=== PATIENT | female | born 1935 | race Caucasian/White ===

== ENCOUNTER 2016-12-26 02:47 | Inpatient (IN) | payer OTHER ==
[~2016-12-26] VITALS: Ht 167.6 cm; Wt 67.1 kg
[~2016-12-26 02:47] MED LIST: CALTRATE 600 +1 EACH PO; DAILY VALUE1 EACH PO; LIPITOR10 M1 PO
[2016-12-26] MEDS ORDERED: COLACE100 M1 PO (09:03)
[2016-12-26] MEDS ORDERED: ELIQUIS2.5 M1 PO (09:03)
[2016-12-26] MEDS ORDERED: MIRALAX17 G1 PO (09:03)
[2016-12-26] MEDS ORDERED: DILAUDID2 M1 PO (09:03)
--- NOTE | 2016-12-26 09:24 | Patient Discharge Instructions ---
Discharge Instructions General Discharge Information You were seen/treated for: Left hip pain secondary to osteoarthritis You had these procedures: Left total hip replacement Watch for these problems: Increasing pain, redness, warmth, swelling. Drainage of any type from incision. Inability to bear weight on right leg. Fever greater than 101.5. Do not soak the wound: Yes No bath, but you may shower: Yes Other wound care: Keep wound clean and dry Special Instructions: activity : Weightbearing as tolerated. No restrictions. Incision site: Keep incision clean and dry clean and dry. Okay to shower. No bathing or soaking. Do not apply any ointments of any type to the postop site. Continue DVT prophylaxis [Eliquis 2.5 mg by mouth 1 tablet twice a day for 3 weeks] Continue bowel regimen as instructed to avoid constipation due to narcotics. Follow-up in 6 weeks for the postop follow-up visit with Dr. Wahl Call office if you develop temperature greater than 101.5, excessive drainage from incision site, or increase in pain which is uncontrolled by pain medication. Diet Continue normal diet: Yes Recommended Diet: Regular Activity Full Activity/No Limits: No Activity Self Limited: Yes Pounds, do NOT lift more than: 10 (until follow up visit.) Activity Limited to: Weight bear as tolerated (in the L eft leg) Acute Coronary Syndrome Inclusion Criteria At DC or during hospital stay patient has or had the following: ACS DIAGNOSIS No Discharge Core Measures Meds if any: Prescribed or Continued at Discharge Meds if any: NOT Prescribed or Continued at Discharge Congestive Heart Failure Inclusion Criteria At DC or during hospital stay patient has or had the following: CHF DIAGNOSIS No Discharge Core Measures Meds if any: Prescribed or Continued at Discharge Meds if any: NOT Prescribed or Continued at Discharge Cerebrovascular accident Inclusion Criteria At DC or during hospital stay patient has or had the following: CVA/TIA Diagnosis No Discharge Core Measures Meds if any: Prescribed or Continued at Discharge Meds if any: NOT Prescribed or Continued at Discharge Venous thromboembolism Inclusion Criteria VTE Diagnosis No VTE Type NONE VTE Confirmed by (Test) NONE Discharge Core Measures - Per Current guidelines, there needs to be overlap - treatment for the first 5 days of Warfarin therapy. - If discharged on Warfarin prior to 5 days of - overlap therapy, the patient will need to be - assessed for post discharge needs including - *Post discharge parental anticoagulation - *Warfarin and/or parental anticoagulation education - *Follow up date to check INR post discharge At least 5 days overlap therapy as Inpatient No Meds if any: Prescribed or Continued at Discharge Note: Overlap Therapy is Warfarin and Anticoagulant Meds if any: NOT Prescribed or Continued at Discharge Meds if any: NOT Prescribed or Continued at Discharge
--- NOTE | 2016-12-26 09:33 | Surgical Discharge Summary ---
Visit Information Visit Dates Admission Date: 12/26/16 Discharge Date: 12/28/16 History of Present Illness Chief Complaint: Left hip pain secondary to osteoarthritis Surgical History Pertinent Surgical History: non-contributory Review of Systems: See H&P Hospital Course Course Attending Physician: REANNA KELLY MD Primary Care Physician: OLMAN ALEXANDRE,[facility] Hospital Course: Admitted to hospital on 12/26/2016 for the postoperative care after the elective procedure, left total hip replacement. She tolerated the procedure well and was transferred to general surgical floor. Her diet was advanced and tolerated. Her vital signs were stable and within normal limits. She voided spontaneously. Her pain is adequately well controlled with oral pain meds. During the Hosptial Course she was seen by physical therapy and deemed appropriate for discharge home with VNA and PT services. Allergies: Coded Allergies: oxycodone (NAUSEA/VOMITTING 12/26/16) PATIENT STATES N/V FROM [facility] Disposition Summary Disposition Principal Diagnosis: Unilateral primary osteoarthritis-left hip Additional Diagnosis: None Discharge Disposition: home health services Discharge Instructions General Discharge Information Code Status: Full Code Patient's Diet: Regular diet Patient's Activity: Weight-bearing as tolerated. Follow-Up Instructions/Appts: Follow up in [address] Kelly for possible postop follow-up visit. Medications at Discharge Discharge Medications: Continue taking these medications: Atorvastatin Calcium (Lipitor) 10 MG TABLET 1 Tablet ORAL DAILY Comments: Last Taken: 12/27/16 Time: 4:30 PM Multivitamin (Daily Value) 1 EACH TABLET 1 Tablet ORAL DAILY Comments: NOT GIVEN IN HOSPITAL Calcium Carbonate/Vitamin D3 (Caltrate 600 + D Tablet) 600 MG-800 TABLET 1 Tablet ORAL TWICE DAILY Comments: NOT GIVEN IN HOSPTIAL Start taking the following new medications: Apixaban (Eliquis) 2.5 MG TABLET 1 Tablet ORAL TWICE DAILY Days = 21 No Refills Comments: Last Taken: 12/28/16 Time: 8:30 AM Hydromorphone HCl (Dilaudid) 2 MG TABLET 1-2 Tablet ORAL EVERY 4-6 HOURS as needed for PAIN Qty = 36 No Refills Comments: Last Taken: 12/28/16 Time: 11:15 AM Docusate Sodium (Colace) 100 MG CAPSULE 1 Capsule ORAL TWICE DAILY Qty = 14 No Refills Instructions: DISCONTNIUE IF YOU DEVLOP DIARRHEA Comments: Last Taken: 12/28/16 Time: 8:30 AM Polyethylene Glycol 3350 (Miralax) 17 GRAM POWD.PACK 1 Packet ORAL DAILY Qty = 7 No Refills Instructions: dissolve in water DISCONTINUE IF YOU DEVELOP DIARRHEA Comments: Last Taken: 12/28/16 Time: 8:30 AM
--- NOTE | 2016-12-26 09:37 | Admission Core Measures ---
Admission Meds I reviewed the following Meds: Current Medications Sig/Vijaya Start time Last Medication Dose Stop Time Status Admin Acetaminophen 975 MG ONCE 12/26 0000 NR (Tylenol) 12/26 2358 Atorvastatin Calcium 10 MG 12/26 AC (Lipitor) Cefazolin Sodium 2,000 MG ONCE 12/26 0000 NR (Kefzol-Ancef Inj) 12/26 2358 Oxycodone HCl 10 MG ONCE 12/26 NR (Roxicodone) 12/26 2358 Patient Medication 1 UNIT 1700 12/26 1699 AC Teaching 12/26 1700 (STATIN EDUCATION) Acute Coronary Syndrome Inclusion Criteria ACS Diagnosis No Inpatient Core Measures LDL Reminder: If No, please order W/I first 24hr of stay Congestive Heart Failure Inclusion Criteria CHF Diagnosis No Cerebrovascular accident Inclusion Criteria CVA/TIA Diagnosis No Inpatient Core Measures Bedside Swallow Eval Reminder: If BSE failed, place ST order Antithrombotic Reminder: Order Antithrombotic Medication by end of day 2 Antithrombotic Reminder: Document Reason Antithrombotic Not ordered by end of day 2 AFIB/Flutter Reminder: If Present, add to problem list AFIB/Flutter Reminder: Order Anticoag Medication for pts with AFIB/Flutter Atherosclerosis Reminder: If Present, add to problem list LDL Reminder: If No, please order W/I first 24hr of stay PT Order Reminder: If No, please order Venous thromboembolism Inpatient Core Measures VTE Risk Factors: Age > 40, [facility] prophylaxis d/t No contraindications No VTE Pharm Prophylaxis d/t No contraindications Inclusion Criteria - Per Current guidelines, there needs to be overlap - treatment for the first 5 days of Warfarin therapy. - Parenteral Anticoagulation (IV or SC) needs to be - given along with Warfarin therapy. VTE Diagnosis No VTE Type NONE VTE Confirmed by (Test) NONE Problem List As ranked by this Provider includes Assessment & Plan 1. Unilateral primary osteoarthritis, left hip HOME MEDS Home Med List Apixaban (Eliquis) 2.5 MG TABLET 1 TAB PO BID ANTICOAGULATION Atorvastatin Calcium (Lipitor) 10 MG TABLET 1 TAB PO DAILY CHOL (Reported) Calcium Carbonate/Vitamin D3 (Caltrate 600 + D Tablet) 600 MG-800 TABLET 1 TAB PO BID SUPP (Reported) Docusate Sodium (Colace) 100 MG CAPSULE 1 CAP PO BID CONSTIPATION Hydromorphone HCl (Dilaudid) 2 MG TABLET 1-2 TAB PO Q4-6 PRN PAIN Multivitamin (Daily Value) 1 EACH TABLET 1 TAB PO DAILY SUPP (Reported) Polyethylene Glycol 3350 (Miralax) 17 GRAM POWD.PACK 1 PAC PO DAILY CONSTIPATION
--- NOTE | 2016-12-26 11:19 | RADIOLOGY REPORT ---
EXAMINATION: XR HIP, LEFT CLINICAL INFORMATION: Postoperative examination. COMPARISON: No relevant prior imaging is available. TECHNIQUE: Two views of the left hip. FINDINGS: There are recent postoperative changes of a total left hip arthroplasty. There is no dislocation. No evidence of periprosthetic fracture. Soft tissue gas adjacent to the prosthesis is consistent with recent surgery. Stool is visualized within the distal colon. IMPRESSION: Expected postoperative changes of a total left hip arthroplasty. No dislocation.
--- NOTE | 2016-12-26 12:46 | PN- Orthopedic ---
Subjective Subjective: The patient was seen this afternoon postoperatively. She reports her pain is under adequate control and has no other complaints at the current time. Objective Vital Signs and I&Os Vital signs: Blood pressure 128/58, pulse 70, temperature 97.5, O2 sat dry she 94% on room air I's and O's: 2100 ML's in of lactated ringer/270 ML's out of urine via Rabago catheter/EBL 150 Physical Exam: Gen.: Alert and in no obvious distress Skin: Warm and dry Cardiac: S1-S2 regular Pulmonary: Bilateral breath sounds are equal with good exchange Extremities: Bilateral lower extremities are warm without calf tenderness or significant edema. Gross motor and sensory are intact. Left hip surgical dressing is clean, dry, and intact. Assessment/Plan Assessment/Plan Assessment: 81-year-old female status post left total hip arthroplasty. Postoperatively the patient is progressing as expected and her pain is under adequate control. Plan: Out of bed with physical therapy patient is weightbearing as tolerated GI and DVT prophylaxis with Eliquis 2.5mg po bid, Alps and teds Continue current pain regiment Monitor for postoperative void Follow-up morning laboratory studies Restart home medications Incentive spirometry Core Measures/Miscellaneous Venous Thromboembolism VTE Risk Factors: Age > 40, Surgery VTE Contraindications: No Contraindications VTE Diagnosis: No VTE Type: NONE VTE Confirmed by (Test): NONE Beta Burak Is Beta Burak a Home Med? No Antibiotics Is Patient on Antibiotics? Yes If Yes: prophylaxis
[2016-12-26 14:26] VITALS: BP 104/62
--- NOTE | 2016-12-26 14:53 | Operative Report ---
Operative/Inv Procedure Report Surgery Date: 12/26/16 Name of Procedure: Left total hip replacement Pre-Operative Diagnosis: Primary left hip DJD Post-Operative Diagnosis: Same Estimated Blood Loss: 250 Surgeon/Ethanol Maintenance Mechanic: LETICIA ALEXANDRE,REANNA Bedolla Anesthesia: block Operative/Procedure Note Note: Description of Procedure: The patient was taken to the operating room and positively identified. After induction of spinal anesthesia and administration of appropriate pre-operative antibiotics, the patient was positioned supine on the operating room table and all bony prominences were well padded. After performing a surgical timeout, the left lower extremity was prepped and draped in the usual sterile fashion. A direct anterior approach was made to the left hip. The incision was carried sharply through superficial soft tissues to the level of the fascia. Meticulous hemostasis was maintained with Bovie electocautery. The fascia over the tensor fascia ritika muscle was opened sharply and the interval between the TFL and the sartorius was entered bluntly taking care to stay lateral to the lateral femoral cutaneous nerve. Retractors were placed around the femoral neck and the pericapsular fat was identified. The ascending branches of the lateral femoral circumflex vessels were identified and carefully coagulated. The pericapsular fat and anterior capsule were then resected. A napkin ring osteotomy was performed and the femoral head was removed without difficulty. Attention was then turned to the acetabulum. After appropriate placement of retractors, the acetabulum was exposed. Soft tissue was cleaned from the acetabular margin and notch. Overhanging osteophytes were removed and the teardrop was exposed. The acetabulum was then sequentially reamed to accept a 58 mm Coyote Tritanium hemispherical solid back shell. This was impacted into place in the appropriate position and fitted with a 36 mm Trident X3 zero degree polyethylene insert. Attention was then turned to the femur. After performing the appropriate ligament releases, the proximal femur was exposed. It was then sequentially broached to accept a size 7 Coyote Omnifit EARLENE cemented stem. This was trialed for leg length and stability. The trial component was removed and the canal was prepared for cementation. The stem was cemented and held in place until the cement fully cured. The trunnion was carefully cleaned and fit with a 36 mm, +0 Biolox delta ceramic femoral head. The hip was reduced and put through a full range of motion and found to be stable. The articular space was then irrigated with sterile saline. The periarticular soft tissues were infilitrated with Marcaine. The fascial layer was closed with interrupted #1 vicryl suture and the skin was re-approximated with interrupted 2 -0 vicryl. The skin was closed with a running 3-0 V-Lock suture. Steri-strips and a sterile dressing were applied. The patient was awakened and taken to the recovery room in satisfactory condition.
[2016-12-26 16:00] VITALS: BP 118/60
[2016-12-26 18:00] VITALS: BP 124/62
[2016-12-26 20:56] VITALS: BP 122/70
[2016-12-26 22:12] VITALS: BP 120/74
[2016-12-27 05:42] VITALS: BP 122/60
[2016-12-27 07:00] VITALS: BP 122/64
--- NOTE | 2016-12-27 07:55 | PN- Orthopedic ---
Subjective Subjective: NAEO. Patient without new complaints of. Pain well-controlled. Tolerating diet without nausea vomiting. No flatus but no bowel movement. Has been out of bed with PT. Denies chest pain or shortness of breath. Objective Vital Signs and I&Os Vital Signs Date Time Temp Pulse Resp B/P Pulse O2 O2 Flow FiO2 Ox Delivery Rate 12/27 0542 98.1 73 20 122/60 97 12/26 2212 97.1 68 18 120/74 95 Room Air 12/26 2056 97.7 70 20 122/70 94 Room Air 12/26 1800 97.0 70 20 124/62 Room Air 12/26 1600 97.6 74 20 118/60 95 Room Air 12/26 1600 97.6 74 20 118/60 95 12/26 1426 97.7 72 20 104/62 93 Room Air Intake & Output 12/27 0800 12/27 0000 12/26 1600 12/26 0800 12/26 0000 12/25 1600 Intake Total 1080 Output Total 1000 1100 Balance 80 -1100 Intake, IV 600 Intake, Oral 480 Output, Urine 1000 1100 Patient 148 lb Weight Physical Exam: General: NAD, comfortable, A&Ox3 Chest: CTAB, no wheezes, no rales. Heart S1S2 normal. Abdomen: soft, nontender, nondistended. +Bowel sounds x4 quadrants Ext: Left hip dressing clean dry and intact. Left lower extremity compartments are soft. No calve swelling/TTP, neurovascularly intact bilateral lower extremities Current Medications: Current Medications Sig/Vijaya Start time Last Medication Dose Route Stop Time Status Admin Acetaminophen 650 MG Q4P PRN 12/26 1315 AC PO Acetaminophen 975 MG ONCE 12/26 0000 DC PO 12/26 2359 Apixaban 2.5 MG BID 12/26 1000 AC 12/26 PO 2157 Atorvastatin Calcium 10 MG 1700 12/26 1700 DC PO Atorvastatin Calcium 10 MG 1700 12/26 1700 AC 12/26 PO 1959 Cefazolin Sodium 2 GM IQ8 12/26 1600 DC 12/27 N/A 1 UNIT IV 12/27 0029 0015 Cefazolin Sodium 2,000 MG ONCE 12/26 0000 DC IV 12/26 2359 Dextrose/Sodium 1,000 ML .[id number] 12/26 1315 AC 12/27 Chloride IV 0015 Docusate Sodium 100 MG BID 12/26 1000 AC 12/26 PO 2156 Hydromorphone HCl 2 MG Q4P PRN 12/26 1315 AC 12/27 PO 0022 Hydromorphone HCl 4 MG Q4P PRN 12/26 1315 AC 12/27 PO 0533 Ketorolac 30 MG .STK-MED ONE 12/26 1447 DC Tromethamine IM 12/26 1448 Ketorolac 15 MG Q12P PRN 12/26 1315 AC 12/26 Tromethamine IV 12/29 1313 1451 Morphine Sulfate 2 MG Q2P PRN 12/26 1315 AC IV Ondansetron HCl 4 MG Q6P PRN 12/26 1315 AC 12/26 IV 1328 Oxycodone HCl 10 MG ONCE 12/26 0000 DC PO 12/26 2359 Patient Medication 1 UNIT 1700 12/26 1700 DC 12/26 Teaching ED 12/26 1701 1999 Patient Medication 1 UNIT 1700 12/26 1700 DC 12/26 Teaching ED 12/26 1701 2003 Patient Medication 1 UNIT 1600 12/26 1600 DC 12/26 Teaching ED 12/26 1601 1959 Patient Medication 1 ED .STK-MED ONE 12/26 1406 [facility] ED 12/26 1407 Patient Medication 1 UNIT ONE NR 12/26 1345 [facility] ED 12/26 1945 Polyethylene Glycol 17 GM DAILY 12/26 1000 AC PO Results Last 48 Hours of Labs: Laboratory Tests 12/27 0710 Chemistry Sodium Pending Potassium Pending Chloride Pending Carbon Dioxide Pending Anion Gap Pending BUN Pending Creatinine Pending BUN/Creatinine Ratio Pending Hematology CBC w Diff Pending WBC Pending RBC Pending Hgb Pending Hct Pending MCV Pending MCH Pending RDW Pending Plt Count Pending MPV Pending PUBS MCHC Pending Assessment/Plan Assessment/Plan Assessment/Plan 81yo F postop day 1 status post left total hip arthroplasty. AVSS, patient progressing well. - Pain control - OOB with PT, WBAT - PRN zofran - DC IVF - I/O's - f/u void - f/u a.m. labs - Eliquis - DC planning - Will d/w attending Core Measures/Miscellaneous Venous Thromboembolism VTE Risk Factors: Age > 40, Surgery VTE Contraindications: No Contraindications VTE Diagnosis: No VTE Type: NONE VTE Confirmed by (Test): NONE Beta Burak Is Beta Burak a Home Med? No Antibiotics Is Patient on Antibiotics? No
[2016-12-27 08:18] LABS: ABSOLUTE BASOPHIL COUNT 0 /CUMM (0.0-0.2); ABSOLUTE EOSINOPHIL COUNT 0 /CUMM (0.0-0.7); ABSOLUTE GRANULOCYTE CT 10.3 /CUMM (1.4-6.5); ABSOLUTE LYMPH COUNT 2.7 /CUMM (1.2-3.4); ABSOLUTE MONOCYTE COUNT 1.4 /CUMM (0.10-0.60); BASOPHIL % 0.2 % (0.0-2.0); EOSINOPHIL % 0.1 % (0-5); GRANULOCYTE % 71.2 % (42.2-75.2); HEMATOCRIT 32.4 % (37-47); MEAN CORPUSCULAR HGB 29.3 PG (27.0-31.0); MEAN CORPUSCULAR HGB CONC 33.2 G/DL (33.0-37.0); MEAN CORPUSCULAR VOLUME 88.3 FL (81.0-99.0); PLATELET COUNT 239 /CUMM (130-400); RBC DISTRIBUTION WIDTH 13.8 % (11.5-14.5); RED BLOOD CELL CT 3.67 /CUMM (4.20-5.40); WHITE BLOOD CELL COUNT 14.4 /CUMM (4.8-10.8)
[2016-12-27 10:24] VITALS: BP 114/60
[2016-12-27 14:30] VITALS: BP 124/60
[2016-12-27 22:29] VITALS: BP 112/60
[2016-12-28 06:19] VITALS: BP 122/60
--- NOTE | 2016-12-28 07:04 | PN- Orthopedic ---
Subjective Subjective: POD#2 S/P LEFT CECY NO COMPLAINTS DONG WELL WITH PT DENIES CP, SOB, NO N+V WITH DIET Objective Vital Signs and I&Os Vital Signs Date Time Temp Pulse Resp B/P Pulse O2 O2 Flow FiO2 Ox Delivery Rate 12/28 0619 98.2 92 20 122/60 92 12/27 2229 98.6 81 19 112/60 90 12/27 1430 98.0 80 20 124/60 94 Room Air 12/27 1024 98.2 75 20 114/60 94 Room Air Intake & Output 12/28 0800 12/28 0000 12/27 1600 12/27 0800 12/27 0000 12/26 1600 Intake Total 240 098 767 5779 Output Total 130 164 6571 1100 Balance 240 -250 150 80 -1100 Intake, IV 600 Intake, Oral 240 600 800 480 Output, Urine 188 211 8915 1100 Patient 148 lb Weight Physical Exam: CV: RRR LUNGS: CLEAR ABD: SOFT, +BS EXT: DRSG CHANGED, WOUND C/D/I NO CALF TENDERNESS BILAT DISTAL CMS INTACT Assessment/Plan Assessment/Plan ORTHO STABLE PLAN CONT OOB WITH PT OK FOR HOME D/C TODAY Core Measures/Miscellaneous Venous Thromboembolism VTE Risk Factors: Age > 40, Surgery VTE Contraindications: No Contraindications VTE Diagnosis: No VTE Type: NONE VTE Confirmed by (Test): NONE Beta Burak Is Beta Burak a Home Med? No Antibiotics Is Patient on Antibiotics? No
== END 2016-12-28 12:45 | disposition home health service (06) | DRG 470 ==
LOC: ENRESERVTM → ENRESERVDT → ENPENDDIS 02:47 → SDA 02:47 → 2NB 02:47 → SDA 07:00 → 2NB 12:33
PROVIDERS: Nurse Practitioner; ADMIT Orthopaedic Surgery
PROC: 0SRB049 Replacement of Left Hip Joint with Ceramic on Polyethylene Synthetic Substitute, Cemented, Open Approach (ICD-10-PCS; principal; 2016-12-26)
DX: M16.12 Unilateral primary osteoarthritis, left hip (principal); E04.9 Nontoxic goiter, unspecified; E78.5 Hyperlipidemia, unspecified; Z87.891 Personal history of nicotine dependence; E78.00 Pure hypercholesterolemia, unspecified
CPT/HCPCS: 2NBP; 36415; 73502-LT; 82436; 88304; 97110-GO; 97116-GO; 97161-GP; 97530-GO; C1713; J0690; J0735; J1100; J1885; J2405; J7042